=== PATIENT | male | born 1950 | race Caucasian/White ===

== ENCOUNTER → 2022-04-18 | Day surgery (SDC) | payer OTHER ==
[2022-04-11 14:50] LABS: CLARITY,URINE CLEAR (Clear); COLOR,URINE YELLOW (Yellow); GLUCOSE, URINE NEGATIVE (Neg); KETONES,URINE NEGATIVE (Neg); LEUKOCYTE ESTERASE ,URINE NEGATIVE (Neg); NITRITES, URINE NEGATIVE (Neg); OCCULT BLOOD,URINE NEGATIVE (Neg); PROTEIN,URINE NEGATIVE (Neg); UROBILINOGEN,URINE 0.2 E.U/dL (0.2-1.0)
[2022-04-11 14:53] LABS: UA COLLECTION TYPE CLN CATCH MIDSTREAM
[2022-04-11 15:07] LABS: BASOPHILS % (AUTO) 0.1 % (0-1); EOSINOPHILS % (AUTO) 0.5 % (0-6); LYMPHOCYTES # (AUTO) 2.6 X10'3 (1.1-4.8); LYMPHOCYTES % (AUTO) 37.4 % (21-51); MEAN CORPUSCULAR HEMOGLOBIN 30.6 PG (27.0-31.0); MEAN CORPUSCULAR HGB CONC 33.4 g/dL (33.0-36.5); MEAN CORPUSCULAR VOLUME 91.9 FL (78-98); MEAN PLATELET VOLUME 6.6 FL (7.4-10.4); MONOCYTES % (AUTO) 14.3 % (2-12); NEUTROPHILS # (AUTO) 3.4 X10'3 (1.8-7.7); NEUTROPHILS % (AUTO) 47.7 % (42-75); PRE OP HEMATOCRIT 42.9 % (42.0-52.0); PRE OP HEMOGLOBIN 14.3 g/dL (14.0-17.9); PRE OP PLATELET COUNT 283 X10'3 (140-440); RED BLOOD COUNT 4.67 X10'6 (4.70-6.10); RED CELL DISTRIBUTION WIDTH 13.1 % (11.5-14.5)
[2022-04-11 15:13] LABS: ALBUMIN 3.9 G/DL (3.4-5.0); ALKALINE PHOSPHATASE 90 IU/L (46-116); BLOOD UREA NITROGEN 17 MG/DL (7-18); BUN/CREATININE RATIO 16.7 (5.4-32.0); CALCIUM 8.9 MG/DL (8.5-10.1); CHLORIDE 103 MMOL/L (99-107); CREATININE 1.02 MG/DL (0.60-1.10); PRE OP ALT 40 U/L (30-65); PRE OP ANION GAP 7 (8-16); PRE OP AST 22 U/L (10-37); PRE OP BILIRUB, TOTAL 0.4 MG/DL (0.0-1.0); PRE OP GLUCOSE 86 MG/DL (70-104); PRE OP SODIUM 138 MMOL/L (135-145); TOTAL CARBON DIOXIDE 28.4 MMOL/L (24-32); eGFR 72 ML/MIN
[~2022-04-18] VITALS: Ht 157.5 cm; Wt 68.1 kg
[2022-04-18] VITALS (9 sets, daily range): BP systolic 119–130; BP diastolic 76–128
[~2022-04-18] MED LIST: DIPH25CA83 PO; FLO0.4C PO; LIDOcaine 2% (20mg/ml) 5ml vial ONE; ROPIVAcaine 0.5% (5mg/ml) 30ml vial ONE; ROSU5TAB12 PO; bacitracin 15gm ointment TP ONE; ceFAZolin inj. 2,000 MG in dextrose 5%-water 100 ML IV ONE; dexamethasone sod phosphate 4mg/ml inj. ONE; enalaprilat dihydrate 2.5mg/2ml vial IV PRN; famotidine 20mg tablet PO ONE; fentaNYL /PF 50mcg/ml 5ml ampule ONE; fentaNYL/PF 50MCG/1 ML 2ML syringe IV PRN; hydrALAZINE 20mg/ml inj. IV PRN; morphine 2 MG/ML inj. syringe IV PRN; morphine 4 MG/ML inj SYRINge IV PRN; ondansetron/PF 4mg/2ml inj IV PRN; ondansetron/PF 4mg/2ml inj ONE; propofol inj 20 ML IV ONE; ringers solution, lacted 1,000 ML IV SCH; sevoflurane 250ml liquid IH ONE
--- NOTE | 2022-04-18 09:20 | NUR ---
Received from [place] via [facility] , accompanied by Anesthesiologist DR FALCON and report given by Anesthesiolgist. PT APPEARS COMFORTABLE, AROUSABLE DENIES PAIN AT THIS TIME. DRSG TO RIGHT FOOT CDI. SURGICAL BOOT TO RIGHT FOOT AND RIGHT LEG IN CAST ELEVATOR.
--- NOTE | 2022-04-18 10:40 | NUR ---
PT WAS DISCHARGED TO HOME SAFELY VIA W/C. PT ACCOMPANIED BY SPOUSE. PT DENIES PAIN AND NAUSEA AND STATES READINESS FOR DC TO HOME. INSTRUCTIONS REVIEWED W/ PT AND SPOUSE AND BOTH STATE UNDERSTANDING. ALL BELONGINGS W/ PT UPON DC TO HOME. BOOT ON. PT WEARING [place] BAND AND GLASSES. CAST ELEVATOR W/ PT UPON DC TO HOME. DRSG TO RIGHT ANKLE REMAINS CDI. PT AND SPOUSE DENY AND NEEDS AND STATE READINESS FOR DC TO HOME.
== END | disposition home or self-care (01) ==
LOC: PAS 05:21
PROVIDERS: ATTEND Podiatrist Foot & Ankle Surgery
DX: M20.11 Hallux valgus (acquired), right foot (principal); M21.611 Bunion of right foot; N40.0 Benign prostatic hyperplasia without lower urinary tract symptoms; G89.18 Other acute postprocedural pain; Z79.899 Other long term (current) drug therapy; Z87.891 Personal history of nicotine dependence; Z98.890 Other specified postprocedural states
CPT/HCPCS: 20900; 28297; 28740; 36415; 64447; 64450; 73620; 76000; 80053; 81003; 82948; 85025; 93005; A6223; C1713; C1776; J0690; J1100; J2704; J2795; J3010; J3490; J7030; J7060; J7120; Z7506; Z7508; Z7512; A4618; A6253; A6449; A7000; J2405

== ENCOUNTER 2024-09-08 05:42 | Day surgery (SDC) | payer OTHER ==
[2024-08-30 12:00] LABS: BASOPHILS % (AUTO) 0.1 % (0-1); BILIRUBIN,URINE NEGATIVE (Neg); CLARITY,URINE CLEAR (Clear); COLOR,URINE YELLOW (Yellow); EOSINOPHILS % (AUTO) 0.4 % (0-6); GLUCOSE, URINE NEGATIVE (Neg); KETONES,URINE NEGATIVE (Neg); LEUKOCYTE ESTERASE ,URINE NEGATIVE (Neg); LYMPHOCYTES # (AUTO) 2.2 X10'3 (1.1-4.8); LYMPHOCYTES % (AUTO) 38.1 % (21-51); MEAN CORPUSCULAR HEMOGLOBIN 31.3 PG (27.0-31.0); MEAN CORPUSCULAR HGB CONC 34.3 g/dL (33.0-36.5); MEAN CORPUSCULAR VOLUME 91.2 FL (78-98); MEAN PLATELET VOLUME 6.4 FL (7.4-10.4); MONOCYTES # (AUTO) 0.8 X10'3 (0-0.9); MONOCYTES % (AUTO) 13.6 % (2-12); NEUTROPHILS # (AUTO) 2.7 X10'3 (1.8-7.7); NEUTROPHILS % (AUTO) 47.8 % (42-75); NITRITES, URINE NEGATIVE (Neg); OCCULT BLOOD,URINE NEGATIVE (Neg); PRE OP HEMOGLOBIN 14.8 g/dL (14.0-17.9); PRE OP PLATELET COUNT 265 X10'3 (140-440); PRE OP WHITE BLOOD COUNT 5.7 10'3 (4.8-10.8); PROTEIN,URINE NEGATIVE (Neg); RED BLOOD COUNT 4.71 X10'6 (4.70-6.10); RED CELL DISTRIBUTION WIDTH 13.4 % (11.5-14.5); UROBILINOGEN,URINE 0.2 E.U/dL (0.2-1.0)
[2024-08-30 12:01] LABS: UA COLLECTION TYPE CLN CATCH MIDSTREAM
[2024-08-30 12:32] LABS: ALBUMIN 3.8 G/DL (3.4-5.0); ALBUMIN/GLOBULIN RATIO 0.9 (1.1-1.5); ALKALINE PHOSPHATASE 94 IU/L (46-116); BLOOD UREA NITROGEN 10 MG/DL (7-18); BUN/CREATININE RATIO 13.7 (10.0-20.0); CALCIUM 9.1 MG/DL (8.5-10.1); CHLORIDE 105 MMOL/L (99-107); CREATININE 0.73 MG/DL (0.60-1.10); PRE OP ALT 37 U/L (30-65); PRE OP ANION GAP 8 (8-16); PRE OP AST 21 U/L (10-37); PRE OP BILIRUB, TOTAL 0.7 MG/DL (0.0-1.0); PRE OP POTASSIUM 4.1 MMOL/L (3.4-5.1); PRE OP SODIUM 139 MMOL/L (135-145); TOTAL CARBON DIOXIDE 26.4 MMOL/L (24-32); TOTAL PROTEIN 7.9 G/DL (6.4-8.2); eGFR > 90 ML/MIN
[2024-08-30 12:38] LABS: PRE OP GLUCOSE 89 MG/DL (70-104)
[2024-09-08] VITALS (9 sets, daily range): BP systolic 121–145; BP diastolic 72–88; PULSE 48–76; RESP 11–16; TEMP 97.5; O2SAT 91–98
[~2024-09-08] VITALS: Ht 157.5 cm; Wt 71.2 kg
[~2024-09-08 05:42] MED LIST changes: -DIPH25CA83 PO; -FLO0.4C PO; -LIDOcaine 2% (20mg/ml) 5ml vial ONE; -ROPIVAcaine 0.5% (5mg/ml) 30ml vial ONE; -ROSU5TAB12 PO; +ROSU5TAB51 PO; +TAMS-55 PO; -bacitracin 15gm ointment TP ONE; -ceFAZolin inj. 2,000 MG in dextrose 5%-water 100 ML IV ONE; -dexamethasone sod phosphate 4mg/ml inj. ONE; -enalaprilat dihydrate 2.5mg/2ml vial IV PRN; -famotidine 20mg tablet PO ONE; -fentaNYL /PF 50mcg/ml 5ml ampule ONE; -fentaNYL/PF 50MCG/1 ML 2ML syringe IV PRN; -hydrALAZINE 20mg/ml inj. IV PRN; -morphine 2 MG/ML inj. syringe IV PRN; -morphine 4 MG/ML inj SYRINge IV PRN; -ondansetron/PF 4mg/2ml inj IV PRN; -ondansetron/PF 4mg/2ml inj ONE; -propofol inj 20 ML IV ONE; -ringers solution, lacted 1,000 ML IV SCH; -sevoflurane 250ml liquid IH ONE
[2024-09-08] MEDS ORDERED: BUPIVAcaine 2.5mg/ml inj 50ml vial (contains preservative) ONE (06:07)
[2024-09-08] MEDS ORDERED: bacitracin 15gm ointment TP ONE (06:07)
[2024-09-08] MEDS: famotidine 20mg tablet PO ONE (06:20)
[2024-09-08] MEDS: ceFAZolin 2gm/dext,iso 50mL 50 ML IV ONE (06:21)
[2024-09-08] MEDS: ringers solution, lacted 1,000 ML IV SCH (06:21)
[2024-09-08] MEDS ORDERED: sevoflurane 250ml liquid IH ONE (07:00)
[2024-09-08] MEDS ORDERED: cloNIDine hcl/PF 100mcg/ml inj ONE (07:10)
[2024-09-08] MEDS ORDERED: fentaNYL/PF 50MCG/1 ML 2ML syringe ONE (07:13)
[2024-09-08] MEDS ORDERED: midazolam 1 mg/ML 2ml injection ONE (07:14)
--- NOTE | 2024-09-08 07:19 | ELECTROCARDIOGRAPH REPORT ---
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 Orlando Krishnamurthy Measurements Intervals [place] Rate: 48 P: 12 TN: 172 QRS: 0 QRSD: 147 T: 28 QT: 457 QTc: 409 Interpretive Statements Sinus bradycardia Right bundle branch block Electronically Signed On 09-11-2024 19:02:[address] Orlando Krishnamurthy Please click the below link to view image of tracing.
[2024-09-08] MEDS ORDERED: 0.9 % SODIUM CHLORIDE 10 ML VIAL ONE (07:30)
[2024-09-08] MEDS ORDERED: ePHEDrine 50MG/ML INJ. ONE (07:30)
[2024-09-08] MEDS ORDERED: dexamethasone sod phosphate 4mg/ml inj. ONE (07:30)
[2024-09-08] MEDS ORDERED: LIDOcaine 2% (20mg/ml) 5ml vial ONE (07:30)
[2024-09-08] MEDS ORDERED: propofol inj 20 ML IV ONE (07:31)
[2024-09-08] MEDS ORDERED: ondansetron/PF 4mg/2ml inj ONE ×2 (07:34→07:35)
[2024-09-08] MEDS ORDERED: acetaminophen 1,000mg/100ml IV 100 ML IV PRN (07:55)
[2024-09-08] MEDS ORDERED: HYDROmorphone/PF 0.2 MG/ML SYRINGE IV PRN ×2 (07:55)
[2024-09-08] MEDS ORDERED: meperidine/PF 25mg/ml syringe IV PRN (07:55)
[2024-09-08] MEDS ORDERED: hydrALAZINE 20mg/ml inj. IV PRN (07:55)
[2024-09-08] MEDS ORDERED: morphine 2 MG/ML inj. syringe IV PRN (07:55)
[2024-09-08] MEDS ORDERED: ondansetron/PF 4mg/2ml inj IV PRN (07:55)
[2024-09-08] MEDS ORDERED: proCHLORperazine 10 MG/2 ml inj IV PRN (07:55)
[2024-09-08] MEDS ORDERED: labetalol 20mg/4ml (5mg/ml) syringe IV PRN (07:55)
[2024-09-08] MEDS ORDERED: ringers solution, lacted 1,000 ML IV SCH (07:55)
[2024-09-08] MEDS: morphine 4 MG/ML inj SYRINge IV PRN (09:15)
== END 2024-09-08 10:10 | disposition home or self-care (01) ==
LOC: PAS 05:42
PROVIDERS: ATTEND Podiatrist Foot & Ankle Surgery
DX: M20.11 Hallux valgus (acquired), right foot (principal); E78.5 Hyperlipidemia, unspecified; Z79.899 Other long term (current) drug therapy; Z98.890 Other specified postprocedural states; G89.18 Other acute postprocedural pain
CPT/HCPCS: 20902; 28730; 36415; 64450; 73620; 76942; 80053; 81003; 82948; 85025; 93005; A6223; C1713; J0735; J1100; J2003; J2250; J2270; J2405; J2704; J3010; J3490; J7030; J7120; Z7506; Z7508; Z7512; 76000; A4215; A4618; A6449; A7000